=== PATIENT | female | born 2000 | race Hispanic/Latino ===

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

== ENCOUNTER 2021-11-15 22:01 | Emergency (ER) | payer MEDICAID ==
[~2021-11-15] VITALS: Ht 157.4 cm; Wt 97.6 kg
[~2021-11-15 22:01] MED LIST changes: +AZIT250T12 PO; -AZIT250T5 PO
[2021-11-15 22:27] VITALS: BP 122/77
--- NOTE | 2021-11-15 22:37 | ED EENT ---
History of Present Illness General Chief Complaint: Oral/Throat Problems Stated Complaint: NECK AND THROAT PAIN Nursing Triage Note: Pt arrival to ER with complaint of Neck/Throat pain x6 days. Pt states that she has been taking ibuprofen to no avail. Pt states it hurts to swallow. Source: patient Exam Limitations: no limitations History of Present Illness Date Seen by Provider: Nov 15, 2021 Time Seen by Provider: 22:29 Initial Comments Patient is a 21-year-old female who presents to the emergency department with a chief complaint of neck pain as well as throat pain. Patient states the neck pain started about a week ago the throat has been steadily hurting for the last 24 to 48 hours. She reports no known fever. She is not nauseous. No vomiting or diarrhea. She did just start antibiotics for urinary tract infection today. She denies earache or runny nose, she is slightly congested. No real cough. She has been taking some ibuprofen, last dose was yesterday at 8 AM. Is not really been helping. She has not been using any throat sprays. Nothing makes the pain any better. She does have a friend who had mono in June and subsequently her boyfriend had it. She was concerned that it may be mono. She was tested for strep at [facility] today and told it was negative. All other review of systems reviewed and negative except as stated. Timing/Duration: gradual Location: throat Prearrival Treatment: over the counter meds Associated Symptoms: sore throat Allergies and Home Medications Allergies Coded Allergies: No Known Drug Allergies (Unverified , 01/04/12) Patient Home Medication List Home Medication List Reviewed: Yes No Active Prescriptions or Reported Meds Review of Systems Review of Systems Constitutional: see HPI Eyes: No Symptoms Reported Ears: No Symptoms Reported Nose: no symptoms reported Mouth: no symptoms reported Throat: pain, swelling, painful swallowing Respiratory: no symptoms reported Cardiovascular: no symptoms reported Gastrointestinal: no symptoms reported : No Musculoskeletal: neck pain (anterior and posterior) Skin: no symptoms reported Neurological: No Symptoms Reported All Other Systems Reviewed Negative Unless Noted: Yes Past Fgqiegb-Qoxeeo-Uovozd Hx Patient Social History Tobacco Use?: No Use of E-Cig and/or Vaping dev: No Substance use?: No Alcohol Use?: No Pt feels they are or have been: No Immunizations Up To Date Tetanus Booster (TDap): Less than 5yrs PED Vaccines UTD: Yes Influenza Vaccine Up-to-Date: Yes; Up-to-Date Second COVID19 Vaccination Bartolo: 06/20 COVID19 Vaccine Machine Lacer: Alejandro Seasonal Allergies Seasonal Allergies: No Past Medical History Surgeries: No Respiratory: No Cardiac: No Neurological: No Reproductive Disorders: No Sexually Transmitted Disease: No Genitourinary: No Gastrointestinal: No Musculoskeletal: No Endocrine: No HEENT: Yes (chronic ear infection as a toddler) Chronic Eye Infection Loss of Vision: Denies Hearing Impairment: Denies Cancer: No Psychosocial: No Integumentary: No Blood Disorders: No Adverse Reaction/Blood Tranf: No Family Medical History Arthritis 19 MOTHER, Onset:Unknown Maternal grandmother, Onset:Unknown Diabetes mellitus Maternal grandmother, Onset:Unknown FH: CAD (coronary artery disease) Maternal grandmother, Onset:Unknown FH: COPD (chronic obstructive pulmonary disease) Maternal grandmother, Onset:Unknown FH: breast cancer Maternal grandmother, Onset:50's - 60 FHx: anemia 19 MOTHER, Onset:Unknown FHx: renal failure Maternal grandmother, Onset:Unknown Hypertension Maternal grandmother, Onset:Unknown No Pertinent Family Hx Physical Exam Vital Signs Vital Signs - First Documented 11/15/21 22:27 Temp 37.4 Pulse 101 Resp 18 B/P (MAP) 122/77 (92) Pulse Ox 96 O2 Delivery Room Air Height, Weight, BMI Height: 5'1.00" Weight: 208lbs. 0.0oz. 94.713001rt; 39.00 BMI Method:Stated General Appearance: WD/WN, no apparent distress Eyes: bilateral eye normal inspection, bilateral eye PERRL, bilateral eye EOMI Ears: bilateral ear auricle normal, bilateral ear canal normal, bilateral ear TM normal Nose: normal inspection Mouth/Throat: normal mouth inspection, pharynx swelling (tonsillar enlargement with exudate), tonsillar exudate Neck: full range of motion, limited range of motion (secondary to discomfort; no discrete LAD appreciated), tender lateral, tender midline Cardiovascular: regular rate, rhythm (101), no murmur Respiratory: lungs clear, normal breath sounds, no respiratory distress, no accessory muscle use Neurologic/Psychiatric: alert, normal mood/affect, oriented x 3 Skin: normal color, warm/dry Progress/Results/Core Measures Results/Orders Lab Results Laboratory Tests Test 11/15/21 22:46 Range/Units Monoscreen POSITIVE H NEGATIVE My Orders Orders - MARLY ELIAS MD Monotest (11/15/21 22:33) Ketorolac Injection (Toradol Injection) (11/15/21 22:45) Medications Given in ED Current Medications Medications Dose Ordered Sig/Angel Route Start Time Stop Time Status Last Admin Dose Admin Ketorolac Tromethamine 60 mg ONCE ONCE IM 11/15/21 22:45 11/15/21 22:46 DC 11/15/21 23:17 60 MG Vital Signs/I&O 11/15/21 22:27 Temp 37.4 Pulse 101 Resp 18 B/P (MAP) 122/77 (92) Pulse Ox 96 O2 Delivery Room Air Blood Pressure Mean: 92 Departure Impression Primary Impression: Mononucleosis Qualified Codes: B27.90 - Infectious mononucleosis, unspecified without complication Disposition: HOME, SELF-CARE Condition: Stable Departure-Patient Inst. Decision time for Depature: 23:21 Referrals: NO,LOCAL PHYSICIAN (PCP/Family) Primary Care Physician Patient Instructions: Mononucleosis Add. Discharge Instructions: Drink lots of fluids to stay well-hydrated. Water/Gatorade, fitness roberts. [id number] ibuprofen, 3 tablets which is 600 mg every 6 hours with food as needed for headache, body aches and fever. Avoid any contact sports/wrestling. Return to the emergency room for worsening sore throat with difficulty swallowing, high fevers unresponsive to the ibuprofen, nausea vomiting or abdominal pain. Follow-up with her primary care physician. Scripts No Active Prescriptions or Reported Meds MARLY ELIAS MD Nov 15, 2021 22:37
[2021-11-15] MEDS ORDERED: KETOROLAC 60 MG/2 ML VIAL IM ONE (22:45)
== END 2021-11-15 23:37 | disposition home or self-care (01) ==
LOC: EDUNIT# 22:01 → ER 22:04
DX: B27.90 Infectious mononucleosis, unspecified without complication (principal)
CPT/HCPCS: 36415; 86308; 99283